=== PATIENT | male | born 1995 | race Caucasian/White ===

== ENCOUNTER → 2017-05-02 | Outpatient (REF) | payer OTHER ==
[2017-05-02 11:06] LABS: RSV AMPLIFICATION NEGATIVE (NEGATIVE)
[2017-05-02 12:47] LABS: INFLUENZA A AMPLIFICATION POSITIVE (NEGATIVE); INFLUENZA B AMPLIFICATION NEGATIVE (NEGATIVE)
== END ==
LOC: M LAB REF 10:27
DX: J11.1 Influenza due to unidentified influenza virus with other respiratory manifestations (principal)

== ENCOUNTER → 2018-11-01 | Outpatient (REF) | payer OTHER ==
[2018-11-01 16:14] LABS: ALBUMIN 4.2 GM/DL (3.2-5.2); ALT/SGPT 25 U/L (12-78); BASO % 0.2 % (0.0-1.0); BILIRUBIN,TOTAL 0.2 MG/DL (0.2-1.0); BLOOD UREA NITROGEN 17 MG/DL (7-18); CALCIUM LEVEL 9.1 MG/DL (8.5-10.1); CARBON DIOXIDE LEVEL 32 MEQ/L (21-32); CHLORIDE LEVEL 103 MEQ/L (98-107); CREATININE FOR GFR 1.02 MG/DL (0.70-1.30); EOS # 0.4 10^3/uL (0.0-0.50); EOS % 4.6 % (0.0-3.0); GLOMERULAR FILTRATION RATE > 60.0 (>60); GLUCOSE, FASTING 82 MG/DL (70-100); HEMATOCRIT 42.7 % (42.0-52.0); HEMOGLOBIN 14.3 g/dl (13.5-17.5); LYMPH # 2.2 10^3/uL (1.5-6.5); LYMPH % 25.5 % (24.0-44.0); MEAN CORPUSCULAR HGB CONC 33.5 g/dl (32.0-36.5); MEAN CORPUSCULAR VOLUME 83.7 fl (80.0-96.0); MONO # 0.9 10^3/uL (0.0-0.8); NEUTROPHILS # 5.1 10^3/uL (1.8-7.7); NEUTROPHILS % 59.5 % (36.0-66.0); PLATELET COUNT, AUTOMATED 271 10^3/uL (150-450); POTASSIUM SERUM 4.4 MEQ/L (3.5-5.1); SODIUM LEVEL 139 MEQ/L (136-145); TOTAL PROTEIN 7.5 GM/DL (6.4-8.2); WHITE BLOOD COUNT 8.5 10^3/uL (4.0-10.0)
== END ==
LOC: M LABDRAW1 15:29
PROVIDERS: ATTEND Physician Assistant
DX: R42 Dizziness and giddiness (principal)

== ENCOUNTER → 2020-03-01 | Outpatient (REF) | payer OTHER | LOC: M LAB REF 17:56 | PROVIDERS: ATTEND Physician Assistant | DX: J02.0 Streptococcal pharyngitis (principal) ==

== ENCOUNTER 2020-09-19 13:29 | Emergency (ER) | payer OTHER ==
[~2020-09-19] VITALS: Ht 180.3 cm; Wt 67.4 kg
[2020-09-19] MEDS ORDERED: MUCI600T31 PO (13:41)
[2020-09-19] MEDS ORDERED: CETI-24 (13:41)
[2020-09-19] MEDS ORDERED: PSEU30TA88 PO (13:41)
[2020-09-19 15:38] LABS: BASO # 0.1 10^3/uL (0.0-0.2); BASO % 0.9 % (0.0-1.0); EOS # 0.4 10^3/uL (0.0-0.5); EOS % 4.8 % (0.0-3.0); HEMATOCRIT 44.9 % (42.0-52.0); LYMPH # 2.6 10^3/uL (1.5-5.0); MEAN CORPUSCULAR HEMOGLOBIN 28.6 pg (27.0-33.0); MEAN CORPUSCULAR HGB CONC 33.4 g/dl (32.0-36.5); MEAN CORPUSCULAR VOLUME 85.5 fl (80.0-96.0); MONO # 0.6 10^3/uL (0.0-0.8); MONO % 7.3 % (2.0-8.0); NEUTROPHILS # 4.1 10^3/uL (1.5-8.5); NEUTROPHILS % 52.7 % (36.0-66.0); PLATELET COUNT, AUTOMATED 308 10^3/uL (150-450); RED BLOOD COUNT 5.25 10^6/uL (4.30-6.10); WHITE BLOOD COUNT 7.7 10^3/uL (4.0-10.0)
--- NOTE | 2020-09-19 15:39 | REP ---
INDICATION: scrotal pain /hernia r/o. COMPARISON: None. TECHNIQUE: Ultrasonographic evaluation of the inguinal region bilaterally before and during Valsalva FINDINGS: There is no evidence of a hernia. IMPRESSION: No ultrasonographic evidence of a hernia. And ultrasound exam cannot rule out an inguinal hernia since they spontaneously reduce. <Electronically signed by Vinay Saldana > 09/19/20 [id number]
--- NOTE | 2020-09-19 15:42 | REP ---
INDICATION: testicular pain. COMPARISON: None. TECHNIQUE: Real-time sonographic evaluation of scrotum and contents performed. FINDINGS: Testicles are normal in size with no testicular mass. There is no testicular torsion with duplex Doppler evaluation. Right testicle measures 4.8 x 2.2 x 3.5 cm and left testicle 4.5 x 2.3 x 3.2 cm. Few tiny echogenic foci in the mid right testicle likely represent a few tiny calcifications. Multiple subcentimeter cysts are seen in the head of the left epididymis, largest is 5 mm. Slightly prominent venous structures are seen in the left hemiscrotum measuring up to 3 mm in diameter, slightly increasing in diameter with Valsalva maneuver, suggesting a small varicocele. IMPRESSION: No testicular mass or torsion. Subcentimeter cysts in the head of the left epididymis. Small left varicocele. <Electronically signed by Sal Rojas > 09/19/20 [id number]
[2020-09-19 16:16] VITALS: BP 153/75
[2020-09-19 17:15] LABS: CHLAMYDIA DNA AMPLIFICATION NEGATIVE (NEGATIVE); GC DNA AMPLIFICATION NEGATIVE (NEGATIVE)
== END 2020-09-19 16:17 | disposition home or self-care (01) ==
LOC: M ED 13:29
DX: N50.812 Left testicular pain (principal); I86.1 Scrotal varices; F17.200 Nicotine dependence, unspecified, uncomplicated

== ENCOUNTER 2020-10-02 10:53 | Emergency (ER) | payer OTHER ==
[~2020-10-02] VITALS: Ht 180.3 cm; Wt 68.2 kg
[~2020-10-02 10:53] MED LIST: CETI-24; MUCI600T31 PO; PSEU30TA88 PO
--- NOTE | 2020-10-02 12:31 | REP ---
INDICATION: testicular pain r/o torsion COMPARISON: 09/19/2020 TECHNIQUE: Rojas scale and color Doppler evaluation using linear and curved array transducer with color Doppler evaluation. FINDINGS: The bilateral testicles and right epididymis are relatively normal in contour, size, echogenicity, vascularity and overall appearance. Few tiny parenchymal calcifications are again identified along with 6 mm and 5 mm left epididymal head cysts similar to prior examination. Mild left-sided varicoceles again noted and unchanged measuring up to roughly 3 mm diameter. There is no evidence for intratesticular mass lesion, infectious/inflammatory process, or torsion. No no hydrocele. Right testicle measures 4.8 x 2.6 x 3.4 cm. Left testicle measures 4.6 x 2.2 x 2.5 cm. IMPRESSION: No significant change from prior examination. No significant acute process appreciated. Relatively stable left epididymal head cysts and early left varicoceles. <Electronically signed by Zohaib Marte > 10/02/20 [id number]
[2020-10-02] MEDS ORDERED: KETOROLAC 30 MG/ML 1ML VIAL IV ONE (12:40)
[2020-10-02 13:18] LABS: BASO # 0.1 10^3/uL (0.0-0.2); BASO % 1.1 % (0.0-1.0); EOS # 0.7 10^3/uL (0.0-0.5); EOS % 9.6 % (0.0-3.0); HEMATOCRIT 43.9 % (42.0-52.0); HEMOGLOBIN 14.5 g/dl (13.5-17.5); LYMPH # 2.5 10^3/uL (1.5-5.0); LYMPH % 34.3 % (24.0-44.0); MEAN CORPUSCULAR HEMOGLOBIN 28.5 pg (27.0-33.0); MEAN CORPUSCULAR VOLUME 86.4 fl (80.0-96.0); MONO # 0.6 10^3/uL (0.0-0.8); MONO % 8.7 % (2.0-8.0); NEUTROPHILS # 3.4 10^3/uL (1.5-8.5); NEUTROPHILS % 46.2 % (36.0-66.0); PLATELET COUNT, AUTOMATED 274 10^3/uL (150-450); RED BLOOD COUNT 5.08 10^6/uL (4.30-6.10); WHITE BLOOD COUNT 7.3 10^3/uL (4.0-10.0)
[2020-10-02] MEDS ORDERED: ISOVUE-370 76% 100ML VIAL As Ordered ONE (13:41)
[2020-10-02 13:42] LABS: ALBUMIN 4.1 GM/DL (3.2-5.2); ALT/SGPT 18 U/L (12-78); BILIRUBIN,DIRECT < 0.1 MG/DL (0.0-0.2); BILIRUBIN,TOTAL 0.4 MG/DL (0.2-1.0); BLOOD UREA NITROGEN 16 MG/DL (7-18); CALCIUM LEVEL 8.9 MG/DL (8.5-10.1); CARBON DIOXIDE LEVEL 28 MEQ/L (21-32); CHLORIDE LEVEL 106 MEQ/L (98-107); CREATININE FOR GFR 1.04 MG/DL (0.70-1.30); GLOMERULAR FILTRATION RATE > 60.0 (>60); GLUCOSE, FASTING 85 MG/DL (70-100); LIPASE 96 U/L (73-393); POTASSIUM SERUM 4.5 MEQ/L (3.5-5.1); SODIUM LEVEL 137 MEQ/L (136-145); TOTAL PROTEIN 7.1 GM/DL (6.4-8.2)
--- NOTE | 2020-10-02 14:15 | REP ---
INDICATION: periumbilic to llq pain. COMPARISON: None TECHNIQUE: Axial contrast-enhanced images from the lung bases to the pubic symphysis using 100 cc Isovue 370 intravenous contrast material. Coronal and sagittal reformations obtained. This CT examination was performed using the following dose reduction techniques: Automated exposure control, adjustment of mA and/or kv according to the patient's size, and the use of iterative reconstruction technique. FINDINGS: Liver, spleen, pancreas, gallbladder, bilateral adrenal glands and kidneys are normal. Moderate to significant colonic fecal stasis and presumed constipation noted. Small bowel is unremarkable. Normal terminal ileum and appendix identified in the right lower quadrant. Pelvis demonstrates normal bladder and age-appropriate prostate/seminal vesicles. No ascites. No free air. No intraperitoneal or retroperitoneal adenopathy. Abdominal aorta and vasculature appear normal. Musculoskeletal structures are intact and without acute osseous abnormality. IMPRESSION: 1. Moderate to significant fecal stasis and presumed constipation possibly related to patient's symptoms. 2. Otherwise unremarkable CT of the abdomen and pelvis. <Electronically signed by Zohaib Marte > 10/02/20 [id number]
[2020-10-02] MEDS ORDERED: MIRA3350 PO (14:31)
[2020-10-02 14:58] VITALS: BP 171/81
== END 2020-10-02 14:58 | disposition home or self-care (01) ==
LOC: M ED 10:53
DX: N50.812 Left testicular pain (principal); K59.00 Constipation, unspecified; F17.200 Nicotine dependence, unspecified, uncomplicated; F12.10 Cannabis abuse, uncomplicated; Z79.899 Other long term (current) drug therapy
CPT/HCPCS: 74177; 76870; 80047; 80048; 80076; 81001; 83690; 85025; 96374; 99284; Q9967

== ENCOUNTER → 2020-10-14 | Outpatient (CLI) | payer OTHER ==
[~2020-10-14] MED LIST changes: +MIRA3350 PO
== END ==
LOC: M PLAIMG 13:03
PROVIDERS: ATTEND Family Medicine
DX: K59.00 Constipation, unspecified (principal)